=== PATIENT | female | born 1985 | race Caucasian/White ===

== ENCOUNTER 2018-07-25 11:50 | Outpatient (REF) | payer BC, SELFPAY ==
--- NOTE | 2018-07-25 11:15 | PAPFT_PTH ---
PATIENT: Franklyn Thompson LOC: [facility] U#:[id number] AGE/SX: 33/F ROOM: RE07/25/[address]: BANDAR Jay : 1985 BED: DIS: 07/25/2018 SPEC #: [id number] RECD: 07/25/18 17:45 STATUS: DARm REQ #: [id number] OSCAR: 07/25/18 11:[address]: Teresita Polk DEPT: [facility] Cytology RECD BY: Alise Alonso ENTERED: 07/25/18 17:45 SP TYPE: PAPFT NANI DR: BANDAR Álvarez Tissues: 1 - CX/ENDOCX FOR PAP SMEARS Procedures: PAP THIN PREP/UVM Screening HPV DNA PROBE Comments: [id number]
[2018-07-26 16:11] LABS: Chlamydia Result Negative; GC Result Negative; Specimen Description CERVIX
== END 2018-07-25 12:10 ==
LOC: LBN 11:50
PROVIDERS: PCP Nurse Practitioner Family; Visit Provider Nurse Practitioner Family
DX: Z11.3 Encounter for screening for infections with a predominantly sexual mode of transmission (principal); Z12.4 Encounter for screening for malignant neoplasm of cervix; Z11.51 Encounter for screening for human papillomavirus (HPV)
CPT/HCPCS: 87491; 87591; 88142; 87624

== ENCOUNTER 2018-09-07 12:17 | Emergency (ER) | payer BC, SELFPAY ==
[2018-09-07 12:27] VITALS: BP 112/92; PULSE 69; RESP 16; TEMP 37; O2SAT 99
--- NOTE | 2018-09-07 12:41 | W.ED.GENAD ---
Discharge Plan Disposition Patient Disposition: HOME Condition: Good Discharge Details Chief Complaint: Sorethroat Clinical Impression: Exudative tonsillitis Primary Care Provider: Sulema Howard ED Provider: Daniel Coelho Home Meds and New Rx's Prescriptions: New azithromycin 250 mg tablet See Label Instructions .ROUTE .COMPLEX Qty: 6 RF: 0 dexamethasone [Decadron] 6 mg tablet 12 mg PO ONCE Qty: 2 RF: 0 No Action levonorgestrel [Mirena] 20 mcg/24 hr (5 years) intrauterine device 1 insert IY ONCE RF: 0 omeprazole 20 MG capsule,delayed release(DR/EC) 20 mg PO BID Qty: 180 RF: 3 buspirone 5 mg tablet 5 mg PO BID Qty: 180 RF: 4 Discharge Instructions Instructions: Tonsillitis (ED) Additional Instructions: If your symptoms continue to worsen please take the medication as directed. If you notice any difficulty swallowing, breathing, or have difficulty controlling her oral secretions please return immediately. Please continue to take home Tylenol and Motrin for any pain. If you notice any worsening of your symptoms, or any new symptoms such as vomiting, diarrhea, fever, chills, shortness of breath, chest pain, numbness, weakness, or fainting , please return immediately to the emergency department for reevaluation. Please follow up with your primary care provider as soon as possible for reassessment and reevaluation. As always, it was a pleasure participating in your medical care today. Referrals: Sulema Howard, OPHTHALMOLOGY ASSISTANT [Primary Care Provider] - Medical Decision Making This is a 33-year-old female who presents today for evaluation of sore throat. Patient states that the sore throat is very minimal in pain. She has had no associated cough, mild fatigue. Subjective fever with a T-max of 99. She has no risk factors of HIV, steroid use, previous STDs. Her immunizations are up-to-date. She has no associated cough. Physical exam demonstrates notable exudates on the tonsils, no signs of airway compromise, and a very well-appearing female otherwise. Bedside strep screen was performed and is negative. We will send for cultures. The patient clinically looks extremely well, her pain is absolutely minimal, there is symptoms of fatigue are very mild, and do appear clinically inconsistent with mono at this time. With the notable exudative tonsillitis without any other significant symptomatology, and a negative strep screen, differential does include mono, atypical bacterium, diphtheria, or or a different viral etiology. The patient does not want any Decadron at this time. We will prescribe azithromycin for potential atypical because of the exudative tonsillitis. We will give a prescription for home Decadron that if the patient does have worsening of her symptoms she can take then. I long discussion regarding red flags for which to return, as well as importance of close follow-up. I have extensively reviewed the treatment plan and discharge instructions with the patient and their family. I have addressed all patient concerns at this time. The patient and family was made aware of what symptoms to monitor for that would warrant a return to the emergency department. Discussed the plan with the patient and family, they demonstrate verbal understanding and agreement with our assessment and plan at this time. HPI General Date/Time Provider Initiated Documentation: 09/07/18 12:23. HPI Narrative: This is a 33-year-old female with a past medical history of anxiety, who takes control. She has no other significant past medical history. She presents today for evaluation of very mild sore throat. The patient states that over the last 48 hours she has had very mild fatigue, minimal sore throat, and a subjective fever at home with a T-max of 99. She denies any cough. She does admit to other sick contacts at her child's local preschool with similar symptoms of sore throat, will been positive for strep. She denies any abdominal pain, flank pain, she states her immunizations are up-to-date, she denies any contact exposure to mono. She has no other complaints at this time. She denies any recent surgeries. She denies any history of IV drug use. She denies any pertinent family history. Related Data Home Medications Medication Instructions Recorded Confirmed omeprazole 20 mg PO BID #180 tab-cap 10/18/17 09/07/18 levonorgestrel 20 mcg/24 hr (5 1 insert IY ONCE 07/25/18 09/07/18 years) intrauterine device buspirone 5 mg tablet 5 mg PO BID #180 tab 07/31/18 09/07/18 azithromycin See Label Instructions .ROUTE 09/07/18 .COMPLEX #6 tab dexamethasone [Decadron] 12 mg PO ONCE #2 tab 09/07/18 Previous Rx's Medication Instructions Recorded omeprazole 20 mg PO BID #180 tab-cap 10/18/17 buspirone 5 mg tablet 5 mg PO BID #180 tab 07/31/18 azithromycin See Label Instructions .ROUTE 09/07/18 .COMPLEX #6 tab dexamethasone [Decadron] 12 mg PO ONCE #2 tab 09/07/18 Allergies Allergy/AdvReac Type Severity Reaction Status Date / Time No Known Allergies Allergy Unverified 08/22/18 13:43 General Stated Complaint: Sorethroat DENISHA: 4 Review of Systems Review of Systems All systems reviewed & are unremarkable except as noted in HPI and below PFSH Family History Mother Arthritis Father Arthritis Malignant melanoma Grandmother Personal history of malignant neoplasm Medical History Anxiety and depression Contraception management History of eclampsia Migraine Social History current occupational status: employed current occupation: [employer] Smoking/Tobacco Use Status: Former Tobacco Use how long ago did patient quit smoking: QUIT NOV 2013 alcohol intake: never substance use type: does not use seatbelt use: always Surgical History section Female Reproductive History Menstrual control method: progestin IUCD Exam Narrative Exam Narrative: 1.Const: Well-nourished, Well-developed, appearing stated age 2.Eyes: PERRL, no conjunctival injection, and symmetrical lids. 3.ENT: Atraumatic external nose and ears. Moist MM. Neck: Symmetric, trachea midline, No thyromegaly. No tender anterior cervical lymphadenopathy. Patient demonstrates good movement of cervical neck. There is no nuchal rigidity, no nuchal tenderness. Patient is able to flex the neck without any difficulty or significant pain. Negative Kernig's and Brudzinski sign. No swelling of the neck. No evidence of airway compromise. Posterior oropharynx demonstrates mild to moderate erythema, notable exudates on the tonsils. No bleeding. 4.CVS: +S1/S2, No murmurs or gallops. Peripheral pulses 2+ and equal in all extremities. Brisk capillary refill in all extremities. 5.RESP: Unlabored respiratory effort. Clear to auscultation bilaterally. No wheezes rales or rhonchi 6.GI: Soft, Nontender/Nondistended, No hepatosplenomegaly. No guarding or rebound. 7.MSK: Normocephalic/Atraumatic, Extremities w/o deformity or ttp No cyanosis or clubbing, Normal movement of all extremities 8.Skin: Warm, Dry. No rashes or lesions. 9.Neuro: resident director II-XII grossly intact. Sensation grossly intact, no focal neurologic deficits. 10.Psych: (AAO) x3. Appropriate mood and affect Neck Course Vital Signs Temperature 37.0 C 09/07/18 12:27 Pulse 69 09/07/18 12:27 Respiratory Rate 16 09/07/18 12:27 Blood Pressure 112/92 H 09/07/18 12:27 Pulse Oximetry 99 09/07/18 12:27 Temperature 37.0 C 09/07/18 12:27 Temperature Source Skin 09/07/18 12:27 Pulse 69 09/07/18 12:27 Respiratory Rate 16 09/07/18 12:27 Respiratory Effort Non-Labored 09/07/18 12:29 Blood Pressure 112/92 H 09/07/18 12:27 Pulse Oximetry 99 09/07/18 12:27 Oxygen Delivery Method Room Air 09/07/18 12:27 Oxygen Flow Rate 0 09/07/18 12:27 Pain Level 0 09/07/18 12:27
--- NOTE | 2018-09-07 12:44 | ED.GENADUL_ITS ---
Discharge Plan Disposition Patient Disposition: HOME Condition: Good Discharge Details Chief Complaint: Sorethroat Clinical Impression: Exudative tonsillitis Primary Care Provider: Sulema Howard ED Provider: Daniel Coelho Home Meds and New Rx's Prescriptions: New azithromycin 250 mg tablet See Label Instructions .ROUTE .COMPLEX Qty: 6 RF: 0 dexamethasone [Decadron] 6 mg tablet 12 mg PO ONCE Qty: 2 RF: 0 No Action levonorgestrel [Mirena] 20 mcg/24 hr (5 years) intrauterine device 1 insert IY ONCE RF: 0 omeprazole 20 MG capsule,delayed release(DR/EC) 20 mg PO BID Qty: 180 RF: 3 buspirone 5 mg tablet 5 mg PO BID Qty: 180 RF: 4 Discharge Instructions Instructions: Tonsillitis (ED) Additional Instructions: If your symptoms continue to worsen please take the medication as directed. If you notice any difficulty swallowing, breathing, or have difficulty controlling her oral secretions please return immediately. Please continue to take home Tylenol and Motrin for any pain. If you notice any worsening of your symptoms, or any new symptoms such as vomiting, diarrhea, fever, chills, shortness of breath, chest pain, numbness, weakness, or fainting , please return immediately to the emergency department for reevaluation. Please follow up with your primary care provider as soon as possible for reassessment and reevaluation. As always, it was a pleasure participating in your medical care today. Referrals: Sulema Howard, SALES OPERATIONS MANAGER [Primary Care Provider] - Medical Decision Making This is a 33-year-old female who presents today for evaluation of sore throat. Patient states that the sore throat is very minimal in pain. She has had no associated cough, mild fatigue. Subjective fever with a T-max of 99. She has no risk factors of HIV, steroid use, previous STDs. Her immunizations are up-to-date. She has no associated cough. Physical exam demonstrates notable exudates on the tonsils, no signs of airway compromise, and a very well-appearing female otherwise. Bedside strep screen was performed and is negative. We will send for cultures. The patient clinically looks extremely well, her pain is absolutely minimal, there is symptoms of fatigue are very mild, and do appear clinically inconsistent with mono at this time. With the notable exudative tonsillitis without any other significant symptomatology, and a negative strep screen, differential does include mono, atypical bacterium, diphtheria, or or a different viral etiology. The patient does not want any Decadron at this time. We will prescribe azithromycin for potential atypical because of the exudative tonsillitis. We will give a prescription for home Decadron that if the patient does have worsening of her symptoms she can take then. I long discussion regarding red flags for which to return, as well as importance of close follow-up. I have extensively reviewed the treatment plan and discharge instructions with the patient and their family. I have addressed all patient concerns at this time. The patient and family was made aware of what symptoms to monitor for that would warrant a return to the emergency department. Discussed the plan with the patient and family, they demonstrate verbal understanding and agreement with our assessment and plan at this time. HPI General Date/Time Provider Initiated Documentation: 09/07/18 12:23 . HPI Narrative: This is a 33-year-old female with a past medical history of anxiety, who takes control. She has no other significant past medical history. She presents today for evaluation of very mild sore throat. The patient states that over the last 48 hours she has had very mild fatigue, minimal sore throat, and a subjective fever at home with a T-max of 99. She denies any cough. She does admit to other sick contacts at her child's local preschool with similar symptoms of sore throat, will been positive for strep. She denies any abdominal pain, flank pain, she states her immunizations are up- to-date, she denies any contact exposure to mono. She has no other complaints at this time. She denies any recent surgeries. She denies any history of IV drug use. She denies any pertinent family history. Related Data Home Medications Medication Instructions Recorded Confirmed omeprazole 20 mg PO BID #180 tab-cap 10/18/17 09/07/18 levonorgestrel 20 mcg/24 hr (5 1 insert IY ONCE 07/25/18 09/07/18 years) intrauterine device buspirone 5 mg tablet 5 mg PO BID #180 tab 07/31/18 09/07/18 azithromycin See Label Instructions .ROUTE 09/07/18 .COMPLEX #6 tab dexamethasone [Decadron] 12 mg PO ONCE #2 tab 09/07/18 Previous Rx's Medication Instructions Recorded omeprazole 20 mg PO BID #180 tab-cap 10/18/17 buspirone 5 mg tablet 5 mg PO BID #180 tab 07/31/18 azithromycin See Label Instructions .ROUTE 09/07/18 .COMPLEX #6 tab dexamethasone [Decadron] 12 mg PO ONCE #2 tab 09/07/18 Allergies Allergy/AdvReac Type Severity Reaction Status Date / Time No Known Allergies Allergy Unverified 08/22/18 13:43 General Stated Complaint: Sorethroat DENISHA: 4 Review of Systems Review of Systems All systems reviewed & are unremarkable except as noted in HPI and below PFSH Family History Mother Arthritis Father Arthritis Malignant melanoma Grandmother Personal history of malignant neoplasm Medical History Anxiety and depression Contraception management History of eclampsia Migraine Social History current occupational status: employed current occupation: [employer] - [employer] Smoking/Tobacco Use Status: Former Tobacco Use how long ago did patient quit smoking: QUIT NOV 2013 alcohol intake: never substance use type: does not use seatbelt use: always Surgical History section Female Reproductive History Menstrual control method: progestin IUCD Exam Narrative Exam Narrative: 1.Const: Well-nourished, Well-developed, appearing stated age 2.Eyes: PERRL, no conjunctival injection, and symmetrical lids. 3.ENT: Atraumatic external nose and ears. Moist MM. Neck: Symmetric, trachea midline, No thyromegaly. No tender anterior cervical lymphadenopathy. Patient demonstrates good movement of cervical neck. There is no nuchal rigidity, no nuchal tenderness. Patient is able to flex the neck without any difficulty or significant pain. Negative Kernig's and Brudzinski sign. No swelling of the neck. No evidence of airway compromise. Posterior oropharynx demonstrates mild to moderate erythema, notable exudates on the tonsils. No bleeding. 4.CVS: +S1/S2, No murmurs or gallops. Peripheral pulses 2+ and equal in all extremities. Brisk capillary refill in all extremities. 5.RESP: Unlabored respiratory effort. Clear to auscultation bilaterally. No wheezes rales or rhonchi 6.GI: Soft, Nontender/Nondistended, No hepatosplenomegaly. No guarding or rebound. 7.MSK: Normocephalic/Atraumatic, Extremities w/o deformity or ttp No cyanosis or clubbing, Normal movement of all extremities 8.Skin: Warm, Dry. No rashes or lesions. 9.Neuro: art objects repairer II-XII grossly intact. Sensation grossly intact, no focal neurologic deficits. 10.Psych: (AAO) x3. Appropriate mood and affect Neck Course Vital Signs Temperature 37.0 C 09/07/18 12:27 Pulse 69 09/07/18 12:27 Respiratory Rate 16 09/07/18 12:27 Blood Pressure 112/92 H 09/07/18 12:27 Pulse Oximetry 99 09/07/18 12:27 Temperature 37.0 C 09/07/18 12:27 Temperature Source Skin 09/07/18 12:27 Pulse 69 09/07/18 12:27 Respiratory Rate 16 09/07/18 12:27 Respiratory Effort Non-Labored 09/07/18 12:29 Blood Pressure 112/92 H 09/07/18 12:27 Pulse Oximetry 99 09/07/18 12:27 Oxygen Delivery Method Room Air 09/07/18 12:27 Oxygen Flow Rate 0 09/07/18 12:27 Pain Level 0 09/07/18 12:27
== END 2018-09-07 13:05 | disposition home or self-care (01) ==
LOC: ER 13:06
PROVIDERS: Emergency Provider Student in an Organized Health Care Education/Training Program; PCP Nurse Practitioner Family
DX: J03.90 Acute tonsillitis, unspecified (principal); Z87.891 Personal history of nicotine dependence
CPT/HCPCS: 87880; 99283; 87081

== ENCOUNTER 2019-09-16 02:36 | Outpatient (CLI) | payer BC, SELFPAY ==
[2019-09-16 12:18] LABS: Abs Immature Grans 0.02 k/cumm (0.0-0.09); Absolute Basophil Count 0.04 k/cumm (0.0-0.2); Absolute Eosinophil Count 0.18 k/cumm (0.0-0.7); Absolute Monocyte Count 0.81 k/cumm (0.11-0.7); Absolute Neutrophil Count 4.84 k/cumm (1.2-6.7); Basophils % 0.5; Eosinophils % 2.3; HCT 43.4 % (36.0-46.0); HGB 14.6 g/dL (12.0-15.5); Immature Grans % 0.3; Lymphocytes % 26.3; Mean Corp. HGB Concentration 33.6 g/dL (32.0-36.0); Mean Corpuscular Hemoglobin 32.2 pg (27.0-33.0); Mean Corpuscular Volume 95.6 fL (80-95); Mean Platelet Volume 9.3 fL (8.0-11.0); Monocytes % 10.1; Neutrophils % 60.5; Platelet Count 314 x1000/uL (130-400); RBC 4.54 m/cumm (4.00-5.20); RBC Distribution Width 11.7 % (11.7-14.6); White Blood Cell Count 7.99 k/cumm (4.4-10.8)
[2019-09-16 13:07] LABS: ALT 59 U/L (14-59); AST 18 U/L (15-37); Albumin 4.2 g/dL (3.4-5.0); Alkaline Phosphatase 46 U/L (46-116); Anion Gap 8.8 mmol/L (3-11); BUN 15 mg/dL (7-18); Bilirubin, Total 0.3 mg/dL (0.2-1.0); CO2 27.2 mmol/L (21.0-32.0); CREATININE 1.01 mg/dL (0.55-1.02); Calcium 9.2 mg/dL (8.5-10.1); Chloride 105 mmol/L (98-107); Glucose 95 mg/dL (70-100); Potassium 4.4 mmol/L (3.5-5.1); Sodium 141 mmol/L (136-145); Total Protein 7.3 g/dL (6.4-8.2)
[2019-09-18 17:27] LABS: Calculated LDL 147 mg/dL; Cholesterol 201 mg/dL (50-200); HDL Cholesterol 46 mg/dL (40-60); Triglyceride 41 mg/dL (30-150)
== END 2019-09-16 02:56 ==
PROVIDERS: PCP Nurse Practitioner Family; Visit Provider Nurse Practitioner Family
DX: R10.812 Left upper quadrant abdominal tenderness (principal); Z00.00 Encounter for general adult medical examination without abnormal findings; Z13.220 Encounter for screening for lipoid disorders
CPT/HCPCS: 36415; 80053; 80061; 85025

== ENCOUNTER 2019-12-24 13:02 | Outpatient (REF) | payer BC, SELFPAY ==
[2019-12-25 15:18] LABS: Chlamydia Result Negative (Negative); GC Result Negative (Negative)
== END 2019-12-24 13:22 ==
LOC: LBN 13:02
PROVIDERS: PCP Nurse Practitioner Family; Visit Provider Nurse Practitioner Women's Health
DX: Z11.3 Encounter for screening for infections with a predominantly sexual mode of transmission (principal)
CPT/HCPCS: 87491; 87591

== ENCOUNTER 2020-07-29 00:16 | Outpatient (REF) | payer BC, SELFPAY ==
[2020-07-28 22:11] LABS: Bilirubin Negative (Negative); Blood Moderate (Negative); Clarity Clear (Clear); Glucose Negative (Negative); Ketones Negative (Negative); Leukocyte Esterase Trace (Negative); Nitrite Negative (Negative); pH 6.5 (5-8)
[2020-07-28 23:03] LABS: Bacteria Few HPF (Negative); C & S Indicated? Yes; Casts Negative LPF (Negative); Crystals Negative HPF (Negative); Epithelial Cells Few HPF (Negative); Mucus Negative (Negative); RBC Negative HPF (0-2)
== END 2020-07-29 00:36 ==
LOC: LBN 00:16
PROVIDERS: PCP Nurse Practitioner Family; Visit Provider Nurse Practitioner Family
DX: R30.0 Dysuria (principal); N39.0 Urinary tract infection, site not specified
CPT/HCPCS: 87077; 81003; 81015; 87086; 87186

== ENCOUNTER 2022-02-22 03:01 | Outpatient (CLI) | payer BC, SELFPAY ==
[2022-02-22 09:58] LABS: Hemoglobin A1C 5.3 % (<5.7)
[2022-02-22 10:42] LABS: Anion Gap 10.9 mmol/L (3-11); BUN 13 mg/dL (7-18); CO2 27.1 mmol/L (21.0-32.0); CREATININE 0.8 mg/dL (0.55-1.02); Calcium 8.8 mg/dL (8.5-10.1); Calculated LDL 172 mg/dL (<100); Chloride 101 mmol/L (98-107); Cholesterol 246 mg/dL (<200); Glucose 105 mg/dL (74-106); HDL Cholesterol 55 mg/dL (40-60); Potassium 4.1 mmol/L (3.5-5.1); Sodium 139 mmol/L (136-145); Triglyceride 95 mg/dL (<150)
== END 2022-02-22 03:02 | disposition home or self-care (01) ==
LOC: LBO 03:01
PROVIDERS: PCP Nurse Practitioner Family; Visit Provider Nurse Practitioner Family
DX: E78.5 Hyperlipidemia, unspecified (principal); F41.8 Other specified anxiety disorders; Z13.1 Encounter for screening for diabetes mellitus
CPT/HCPCS: 36415; 80048; 80061; 83036

== ENCOUNTER 2024-10-22 08:50 | Outpatient (REF) | payer MEDICAID, SELFPAY ==
--- NOTE | 2024-10-22 08:30 | PAPFT_PTH ---
PATIENT: Franklyn Thompson LOC: [facility] U#:[id number] AGE/SX: 39/F ROOM: RE10/22/[address]: Naheed Reynolds DO : 1985 BED: DIS: 10/22/2024 SPEC #: [id number] RECD: 10/22/24 12:46 STATUS: DARm REQ #: [id number] OSCAR: 10/22/24 08:[address]: Naheed Reynolds DEPT: [facility] Cytology RECD BY: Alise Alonso ENTERED: 10/22/24 12:46 SP TYPE: PAPFT OTHR DR: Sulema Howard, SLOT OPERATIONS DIRECTOR Tissues: 1 - CX/ENDOCX FOR PAP SMEARS Procedures: PAP THIN PREP/UVM Screening HPV DNA PROBE Comments: (HPV 16 & 18/45)
== END 2024-10-22 08:51 | disposition home or self-care (01) ==
LOC: LBN 08:50
PROVIDERS: PCP Nurse Practitioner Family; Visit Provider Obstetrics & Gynecology
DX: Z01.419 Encounter for gynecological examination (general) (routine) without abnormal findings (principal); Z30.431 Encounter for routine checking of intrauterine contraceptive device; Z98.891 History of uterine scar from previous surgery; R03.0 Elevated blood-pressure reading, without diagnosis of hypertension; N77.1 Vaginitis, vulvitis and vulvovaginitis in diseases classified elsewhere
CPT/HCPCS: 88142; 87624

== ENCOUNTER 2024-10-29 01:31 | Outpatient (CLI) | payer MEDICAID, SELFPAY ==
--- NOTE | 2024-10-29 14:34 | DI.MAMMO_ITS ---
Exam(s) MAMMO SCREENING EXAM: MAMMO SCREENING CLINICAL HISTORY: screening,Z12.39. TECHNIQUE: Bilateral full field digital CC and MLO mammographic images were obtained with 3D tomosyn thesis and utilizing computer aided detection (CAD). COMPARISON: None. This is a baseline mammogram on this 39-year-old FINDINGS: There are no significant focal findings in the right breast. The upper outer quadrant left breast is an asymmetric density-possible nodule located approximately 1 2 cm in from the nipple on the MLO view measuring approximately 6 x 6 mm. Further imaging recommende d. There are no malignant-appearing microcalcification groups is region or elsewhere in either breast. There is no significant architectural distortion nor skin thickening-retraction. IMPRESSION: 1. No radiographic evidence of malignancy in the right breast. 2. Possible nodule upper-outer quadrant left breast. Spot compression MLO view and breast ultrasoun d recommended. BI-RADS Category 0 - Incomplete: Need additional imaging evaluation Breast Density - Category B - Scattered areas of fibroglandular density Breast density Category C or D implies that the patient has dense breast tissue. Dense breast tissue can make it harder to find cancer on a mammogram. Dense breast tissue is also associated with an incr eased risk of breast cancer. This information about the result of the mammogram report was provided to the patient to raise their awareness. Use this report when you speak with the patient about their risks for breast cancer, which includes their family history. At that time, you may recommend additional screening tests (Ultrasoun d or MRI) as these tests may add significant information. A negative radiographic report should not delay biopsy if a dominant or clinically suspicious mass is present. Up to ten percent of cancers are not identified on mammography. A negative report may reinforce clinical impression. Adenosis and dense breasts may obscure an underlying neoplasm. False positive reports average 6 to 10%. Patient will receive a letter notifying them of these results.
== END 2024-10-29 01:51 ==
LOC: DI 01:31
PROVIDERS: PCP Nurse Practitioner Family; Visit Provider Nurse Practitioner Family
DX: Z12.31 Encounter for screening mammogram for malignant neoplasm of breast (principal); R92.323 Mammographic fibroglandular density, bilateral breasts; N76.0 Acute vaginitis
CPT/HCPCS: 77063; 77067

== ENCOUNTER 2024-11-05 02:58 | Outpatient (CLI) | payer MEDICAID, SELFPAY ==
--- NOTE | 2024-11-05 | DI.MAMMO_ITS ---
Exam(s) MAMMO SCREEN CALL BACK UNI EXAM: MAMMO SCREEN CALL BACK UNI CLINICAL HISTORY: Approximately 6 x 6 mm asymmetric density-possible nodule 12 cm from nipple. TECHNIQUE: Craniocaudal and mediolateral oblique Full Field Digital Mammography views of the left br east with Computer Aided Diagnosis. COMPARISON: Comparison is made with patient's baseline examination dated 10/29/2024. FINDINGS: Mammography/Tomosynthesis: Masses/Architectural Distortion: The area of concern in the upper left breast does not persist on the additional views. No mass is identified. No area of architectural distortion is seen. Microcalcifictions: No suspicious pleomorphic-type are seen. Skin Thickening/Nipple Retraction: None. IMPRESSION: 1. No evidence of malignancy is noted. 2. Unless there is more urgent need, follow-up screening mammography is recommended, as per [place] [employer] guidelines. 3. The findings were discussed with the patient on the date of the examination. BI-RADS Category 1 - Negative Breast Density - Category B - Scattered areas of fibroglandular density Breast density Category C or D implies that the patient has dense breast tissue. Dense breast tissue can make it harder to find cancer on a mammogram. Dense breast tissue is also associated with an incr eased risk of breast cancer. This information about the result of the mammogram report was provided to the patient to raise their awareness. Use this report when you speak with the patient about their risks for breast cancer, which includes their family history. At that time, you may recommend additional screening tests (Ultrasoun d or MRI) as these tests may add significant information. A negative radiographic report should not delay biopsy if a dominant or clinically suspicious mass is present. Up to ten percent of cancers are not identified on mammography. A negative report may reinforce clinical impression. Adenosis and dense breasts may obscure an underlying neoplasm. False positive reports average 6 to 10%. Patient will receive a letter notifying them of these results.
== END 2024-11-05 03:18 ==
LOC: DI 02:58
PROVIDERS: PCP Nurse Practitioner Family; Visit Provider Nurse Practitioner Family
DX: Z12.31 Encounter for screening mammogram for malignant neoplasm of breast (principal); R92.323 Mammographic fibroglandular density, bilateral breasts
CPT/HCPCS: 77063; 77067

== ENCOUNTER 2024-12-03 08:23 | Day surgery (SDC) | payer MEDICAID, SELFPAY ==
[2024-12-03] VITALS (16 sets, daily range): BP systolic 151–186; BP diastolic 76–110; PULSE 93–104; RESP 14–23; TEMP 36.4–37.1; O2SAT 94–100; BMI 48.5
--- NOTE | 2024-12-03 09:07 | W.ANESPRE ---
General Info Date of Service Date Performed: 12/03/24 Height: 5 ft Weight: 112.8 kg Body Mass Index (BMI): 48.5 Surgical Procedure: Operation Date: 12/03/24 09:25 Proposed Procedure Side Surgeon p Removal and Insertion of IUD- Mirena Naheed Reynolds DO Meds Allergies and Home Medications Allergies Allergy/AdvReac Type Severity Reaction Status Date / Time No Known Allergies Allergy Verified 12/03/24 08:53 Home Medication ?Medication ?Instructions ?Recorded levonorgestrel 21 mcg/24 hr (up to 1 device intrauterine ONCE 07/24/19 8 years) 52 mg intrauterine device (Mirena) buspirone 5 mg tablet 5 mg PO BID #180 tabs 09/26/23 omeprazole 20 mg capsule,delayed 20 mg PO DAILY #90 tabs 06/09/24 release Current Visit Medications: Current Medications Generic Name Dose Route Start Last Admin Trade Name Freq PRN Reason Stop Dose Admin Ringer's Solution 1,000 mls @ 0 mls/hr 12/03/24 06:00 IV 12/03/24 23:59 INFUSION DEAN Ringer's Solution 1,000 mls @ 80 mls/hr 12/03/24 07:30 IV 01/02/25 07:29 INFUSION DEAN IV Miscellaneous Supplies 1 each 12/03/24 06:00 Iv Access IV 12/03/24 23:59 DIRECTED DEAN Sodium Chloride 0 ml 12/03/24 06:00 Normal Saline Flush 10 Ml Syr IV 12/03/24 23:59 PRN PRN Sodium Chloride 0 ml 12/03/24 06:00 Normal Saline 10 Ml Vial IJ 12/03/24 23:59 DIRECTED PRN Sterile Water 0 ml 12/03/24 06:00 Water,Injection,Sterile 10 Ml Vial IJ 12/03/24 23:59 DIRECTED PRN PFSH Active Problems Active Problems: Problem Status Onset Code IUD contraception Acute Z97.5 Well woman exam with routine gynecological exam Acute Z01.419 Elevated BP without diagnosis of hypertension Chronic R03.0 Obesity Chronic E66.9 Hyperlipidemia Chronic E78.5 Generalized anxiety disorder Chronic F41.1 Alcohol use disorder Chronic GERD (gastroesophageal reflux disease) Chronic K21.9 IUD surveillance Chronic Z30.431 Medical History Medical History Major depressive disorder pt. denies Surgical History Surgical History H/O section (03/22/09) Tobacco Smoking/Tobacco Use Status: Former Tobacco Use Passive smoking exposure: No Second hand exposure: Yes Alcohol Alcohol Intake: current Alcohol intake frequency: a few times a week Substance Use Substance use: Never Substance use type: does not use Prental History History 3 Para Hx # Term Pregnancies 1 Multiple births Hx # Pregnancies Ectopic pregnancies AB induced 1 Hx Number of Living Children 1 AB spontaneous 1 Vital Signs and Lab Results Vital Signs Most Recent Vital Signs in EMR: Most Recent Vital Signs Temp Pulse Resp BP Pulse Ox 36.5 C 104 H 20 180/98 H 100 12/03/24 08:50 12/03/24 08:50 12/03/24 08:50 12/03/24 08:50 12/03/24 08:50 Point of Care Results Point of Care Results: POC- Test(urine) Negative 12/03/24 09:01 Lab Results Blood Type / Crossmatch: No Data to Display Complete Blood Count: No Data to Display Complete Metabolic Panel: No Data to Display Liver Function Panel: No Data to Display Coagulation Panel: No Data to Display Cardiac Panel: No Data to Display Arterial Blood Gas: No Data to Display Venous Blood Gas: No Data to Display Pancreas Panel: No Data to Display Thyroid Panel: No Data to Display Infectious Disease: No Data to Display Blood Cultures: No Data to Display Toxicology Panel: No Data to Display Panel: No Data to Display Anesthesia Assessment and Plan Anesthesia History Personal History: No History of Anesthesia Complications Family History: No Family History of Anesthesia Complications Exercise Tolerance Exercise Tolerance: Metabolic Equivalents>4 Pertinent Negatives Pertinent Negatives: No Symptoms of GERD, No Major Cardiovascular Symptoms or Complaints, No Major Pulmonary Symptoms or Complaints and No History of CVA/TIA Cardiac & Pulmonary Exam Cardiac Exam: Normal S1/S2 Heart Sounds Pulmonary Exam: Clear Bilateral Breath Sounds Implantable Cardiac Device Does patient have a Pacemaker or an ICD?: No Airway Exam Known Difficult Airway: No Mallampati Class: 2 Mouth Opening: Normal (> 3cm) Thyromental Distance: Greater than 3 cm Neck Range of Motion: Full ROM Neck Circumference: Normal Teeth Condition: Normal Dentition ASA Classification ASA Score: ASA 3 Emergency Case?: No NPO Status NPO Status: NPO Clears >2 hours, Solids >8 hours Status Status: Negative HCG Anesthesia Plan Resuscitation Status: Full Code Anesthesia Technique: General Anesthesia Airway Planned: Natural Airway Monitors Used: Standard Monitors
[2024-12-03] MEDS: Lactated Ringers 1,000 ML 80 ML IV (09:15)
--- NOTE | 2024-12-03 10:10 | W.PM.OP ---
Operative Note Operative Note PRE-OP DIAGNOSIS: IUD in situ, desires contraception PROCEDURE: Removal of Mirena system. Replacement of Mirena system. SURGEON: Naheed Reynolds ANESTHESIA TYPE: General:No Airway Refer to Anesthesia Record ESTIMATED BLOOD LOSS: 5 PATHOLOGY: none sent COMPLICATIONS: None Patient was transported to: PACU Patient's condition: stable Implants: Mirena IUD, expiration 12/20/2026. Lot number [id number] Indications: Need for replacement of Mirena system Findings: Nonvisualization of the IUD strings. Removal of Mirena system. Replacement of Mirena system Procedure Description: After full informed consent was obtained, patient taken the operating suite with IV running. She was placed in dorsal supine position and general anesthesia administered. She was then placed in the modified dorsolithotomy position and prepped and draped in the usual sterile fashion. A timeout was held. There was no need for antibiotic prophylaxis. Speculum was inserted into the vaginal vault and cervical os identified. There was no visualization of the IUD strings. A long polyp forcep was used to grasp the device in situ and removed in toto. At this point, cervical os dilated to the point that the Mirena system insertion device could be inserted without difficulty. The device was deployed in the usual fashion. Strings were cut to 2 cm. Tenaculum was removed from the anterior lip of the cervix previously placed for stabilization. Puncture sites were hemostatic. The patient was returned to the dorsal supine position and woke from anesthesia without difficulty. Complications: None apparent EBL: 5 mL Findings: Successful removal and replacement of a Mirena system. Date of Procedure: 12/03/24
[2024-12-03] MEDS: ACETAMINOPHEN 1,000 MG/100 ML BAG 400 MG IVPB (10:27)
[2024-12-03] MEDS: Ketorolac 15 MG/ML VIAL IVP (10:29)
--- NOTE | 2024-12-03 10:41 | W.ANESPOSTOP ---
Postoperative Evaluation Date, Time and Location Date Performed: 12/03/24 Time Performed: 10:41 Patient Location: PACU Vital Signs Most Recent Imported Vital Signs: Most Recent Vital Signs Temp Pulse Resp BP Pulse Ox 37.1 C 93 H 22 152/78 H 98 12/03/24 10:35 12/03/24 10:35 12/03/24 10:36 12/03/24 10:35 12/03/24 10:36 Pain Score Most Recent Pain Score: Most Recent Pain Score Pain Level 4 12/03/24 10:38 Assessment Mental Status: Awake (Alert & Oriented to Patient Baseline) Airway and Respiratory Function: Patent airway with normal (patient baseline) respiratory exam Cardiovascular Function: Hemodynamically Stable Hydration Status: Adequately Hydrated Nausea & Vomiting: No Nausea or Vomiting Pain: Pt. Denies Any Pain Peripheral Nerve Block: Patient did not receive a nerve block
== END 2024-12-03 11:21 | disposition home or self-care (01) ==
PROVIDERS: PCP Nurse Practitioner Family; Visit Provider Obstetrics & Gynecology
PROC: (CPT 58301; principal; 2024-12-03 09:15)
DX: Z30.433 Encounter for removal and reinsertion of intrauterine contraceptive device (principal); F41.9 Anxiety disorder, unspecified
CPT/HCPCS: 58301; 58300; J0131; J1885; J2250; J2704; J3010

== ENCOUNTER 2025-03-13 00:49 | Outpatient (CLI) | payer MEDICAID, SELFPAY ==
[2025-03-13 12:23] LABS: HCT 45.6 % (36.0-46.0); HGB 15.5 g/dL (11.2-15.7); MCH 35.5 pg (27.0-33.0); MCV 104 fL (80-95); MPV 8.9 fL (8.0-11.0); Platelet Count 277 10^3/uL (130-400); RBC 4.37 10^6/uL (3.93-5.22); RDW 12.4 % (11.7-14.6); RDW-SD 47.8 fL
[2025-03-13 12:50] LABS: Hemoglobin A1C 5.3 % (<5.7)
[2025-03-13 13:10] LABS: ALT 152 U/L (14-59); AST 110 U/L (15-37); Albumin 3.8 g/dL (3.4-5.0); Alkaline Phosphatase 62 U/L (46-116); Anion Gap 11.6 mmol/L (3-11); BUN 5 mg/dL (7-18); Bilirubin, Total 0.7 mg/dL (0.2-1.0); CO2 28.4 mmol/L (21.0-32.0); CREATININE 0.7 mg/dL (0.55-1.02); Calcium 9.3 mg/dL (8.5-10.1); Chloride 103 mmol/L (98-107); Estimated GFR 112.05 (mL/min/1.73m2); Glucose 126 mg/dL (74-106); Potassium 3.8 mmol/L (3.5-5.1); Sodium 143 mmol/L (136-145); Total Protein 7.9 g/dL (6.4-8.2); Vitamin B12 553 pg/mL (193-986)
[2025-03-13 19:09] LABS: Hepatitis C Ab w Rflx HCV PCR Negative (Negative)
[2025-03-13 19:13] LABS: HIV-1/2 Ag & Ab Screen Negative (Negative)
[2025-03-13 19:15] LABS: HBs Antibody, Quant 30.5 mIU/mL (See Note); Hep B Surface Ab Positive (See Note); Hepatitis B Core Antibody Negative (Negative); Hepatitis B Surface Antigen Negative (Negative)
[2025-03-17 10:49] LABS: IgA 250 mg/dL (85-499); Interpretation (See Note); Tissue Transglutaminase IgA <4.0 CU (<20.0)
== END 2025-03-13 00:50 | disposition home or self-care (01) ==
LOC: LOS 00:49
PROVIDERS: PCP Nurse Practitioner Family; Visit Provider Nurse Practitioner Family
DX: Z11.59 Encounter for screening for other viral diseases (principal); Z00.00 Encounter for general adult medical examination without abnormal findings; Z11.4 Encounter for screening for human immunodeficiency virus [HIV]; K90.41 Non-celiac gluten sensitivity
CPT/HCPCS: 36415; 80053; 82784; 83516; 85027; 86704; 86706; 86803; 87340; 87389; 82607; 83036; 84443

== ENCOUNTER 2025-07-27 08:25 | Outpatient (CLI) | payer MEDICAID, SELFPAY ==
[2025-07-27 14:11] LABS: Abs Immature Grans 0.07 10^3/uL (0.0-0.06); HCT 41.4 % (36.0-46.0); HGB 13.9 g/dL (11.2-15.7); Immature Grans % 1.0 %; MCH 36.7 pg (27.0-33.0); MCHC 33.6 % (32.0-36.0); MCV 109 fL (80-95); MPV 8.8 fL (8.0-11.0); Platelet Count 221 10^3/uL (130-400); RBC 3.79 10^6/uL (3.93-5.22); RDW 13.1 % (11.7-14.6); RDW-SD 52.2 fL; WBC 7.17 10^3/uL (4.4-10.8)
[2025-07-27 14:28] LABS: ALT 274 U/L (14-59); AST 208 U/L (15-37); Albumin 3.8 g/dL (3.4-5.0); Alkaline Phosphatase 49 U/L (46-116); Anion Gap 12.8 mmol/L (3-11); BUN 8 mg/dL (7-18); Bilirubin, Total 0.8 mg/dL (0.2-1.0); CO2 27.2 mmol/L (21.0-32.0); Calcium 8.9 mg/dL (8.5-10.1); Calculated LDL 165 mg/dL (<100); Chloride 105 mmol/L (98-107); Cholesterol 225 mg/dL (<200); Estimated GFR 94.87 (mL/min/1.73m2); Glucose 92 mg/dL (74-106); HDL Cholesterol 41 mg/dL (>or=50); Potassium 3.5 mmol/L (3.5-5.1); Sodium 145 mmol/L (136-145); Total Protein 7.6 g/dL (6.4-8.2); Triglyceride 97 mg/dL (<150)
[2025-07-27 14:33] LABS: Macrocytosis 2+
[2025-07-29 09:32] LABS: Ferritin 434 ng/mL (8-252)
== END 2025-07-27 08:26 | disposition home or self-care (01) ==
LOC: LOS 08:26
PROVIDERS: PCP Nurse Practitioner Family; Referring Provider Nurse Practitioner Family; Visit Provider Nurse Practitioner Family
DX: R79.89 Other specified abnormal findings of blood chemistry (principal); I10 Essential (primary) hypertension
CPT/HCPCS: 36415; 80053; 80061; 82728; 85025

== ENCOUNTER 2025-07-31 03:44 | Outpatient (CLI) | payer MEDICAID, SELFPAY ==
--- NOTE | 2025-07-31 05:45 | DI.CT_ITS ---
Exam(s) CT ABDOMEN PELVIS W EXAM: CT ABDOMEN PELVIS W CLINICAL HISTORY: elevated LFT, eval for signs of cirrhosis,? ASCITES,k75.9. TECHNIQUE: Imaging Protocol: Axial computed tomography images with coronal and sagittal reformatted images were created and reviewed CONTRAST MATERIAL: Intravenous: Omnipaque-350 100cc Oral: None COMPARISON: CT RENAL COLIC WO CONTRAST from 07/18/2017 FINDINGS: VISUALIZED LUNG BASES: No nodules nor pleural effusions evident. ABDOMEN: There is no ascites. LIVER: Liver size is normal. Liver is hypodense implying steatosis. There are no discrete focal hepatic lesions no dilated intrahepatic ducts. GALLBLADDER/BILIARY: No obvious gallbladder pathology. CBD is not dilated. PANCREAS: No evidence of pancreatic mass nor dilatation of the pancreatic duct. SPLEEN: Spleen is not enlarged. No obvious intrasplenic lesions. Splenic and portal veins are patent. No collateralization and no varices evident. ADRENALS: There are no significant adrenal masses. KIDNEYS:No cysts evident. No solid renal masses. No calculi nor hydronephrosis.. ABDOMINAL AORTA: Abdominal aorta is not enlarged. LYMPH NODES:There is no retroperitoneal nor paraaortic adenopathy. ABDOMINAL WALL: No evidence of significant anterior abdominal wall nor inguinal hernia. GI: There is no evidence of bowel obstruction, free air, nor abscess. PELVIS: GI: No evidence of appendicitis.Redundant sigmoid. No evidence of significant sigmoid diverticular disease. LYMPH NODES: There is no intrapelvic nor inguinal adenopathy. REPRODUCTIVE: There is an IUD again noted in the endometrial cavity. Ovaries appear unremarkable. There no extraovarian adnexal masses. No free fluid in the pelvis. URINARY BLADDER: Collapsed; therefore difficult to evaluate. OSSEOUS: No fractures and no significant osseous lesions. IMPRESSION: 1. The liver is hypodense implying steatosis. There are no discrete focal hepatic lesions. Liver size is upper normal. 2. No evidence of splenomegaly, varices, nor ascites. 3. There is an IUD again noted in the endometrial canal which appears to be in satisfactory position. RADIATION DOSE DELIVERED: 998.49mGy.cm Total DLP DATA REPOSITORY: All CT scans at this facility are submitted to the National Radiology Data Registry (NRDR) Dose Index Registry (DIR) with the [employer] ([employer]). RADIATION OPTIMIZATION: All CT scans at this facility use at least one of these dose optimization techniques: automated exposure control; mA and/or kV adjustment per patient size (includes targeted exams where dose is matched to clinical indication); or iterative reconstruction.
[2025-07-31] MEDS: Barium Sulfate 2% W/V-Berry Smoothie 450 ML BTL PO (08:58)
[2025-07-31] MEDS: Barium Sulfate 2% W/V-Creamy Vanilla Smoothie 450 ML BTL PO (08:58)
[2025-07-31 09:03] LABS: Folate 1.6 ng/mL (8.6-20.0); Vitamin B12 586 pg/mL (193-986)
[2025-07-31] MEDS: Normal Saline Flush 10 ML SYR IVP (09:56)
[2025-07-31] MEDS: Normal Saline - Diluent 50 ML VIAL IJ (09:57)
[2025-07-31] MEDS: Omnipaque 350 MG/ML 100 ML BTL IJ (09:57)
[2025-08-03 14:08] LABS: Hepatitis A Antibody IgM Negative (Negative); Hepatitis C Ab w Rflx HCV PCR Negative (Negative)
== END 2025-07-31 04:04 ==
LOC: DI 03:44
PROVIDERS: PCP Nurse Practitioner Family; Visit Provider Nurse Practitioner Family
DX: R74.8 Abnormal levels of other serum enzymes (principal); K75.9 Inflammatory liver disease, unspecified; K76.0 Fatty (change of) liver, not elsewhere classified
CPT/HCPCS: 86704; 86709; 86803; 87340; 74177; 82607; 82746; 84425; J3490